=== PATIENT | female | born 1970 | race Hispanic/Latino ===

== ENCOUNTER 2021-05-31 15:36 | Emergency (ER) | payer SELFPAY ==
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
[2021-05-31 20:15] VITALS: BP 119/78; TEMP 98.3; O2SAT 97
== END 2021-05-31 18:24 | disposition home or self-care (01) ==
LOC: ER 15:36
DX: S02.2XXA Fracture of nasal bones, initial encounter for closed fracture (principal); W22.8XXA Striking against or struck by other objects, initial encounter; Y93.89 Activity, other specified
CPT/HCPCS: 70450; 70486; 76377; 99283